=== PATIENT | female | born 1940 | race Caucasian/White ===

== ENCOUNTER 2017-04-26 08:58 | Outpatient (CLI) | payer MEDICARE ==
--- NOTE | 2017-04-26 15:14 | Diagnostic Imaging Report ---
[facility] [address] [facility] [address] [place] [address]. [id number] Report Submission Date: Apr 26, 2017 1:55:48 PM CDT Patient Study Name: KRISTINE MCBRIDE Date: Apr 26, 2017 9:01:03 AM CDT Modality Type: CR Gender: F Description: SPINE : 38 Institution: [facility] Physician ADELFO MORGAN - JOSE Lumbar spine 3 views Date of Exam: April 26, 2017. History: LOW BACK PAIN AFTER FALL ON 04/15/17 (Hx) / LOW BACK PAIN (DICOM Hx) / LOW BACK PAIN (Pt comments) Findings: Multilevel degenerative lumbar spondylosis is present. There are compression deformities of L1, L2 and L4. Correlation with MRI lumbar spine is recommended to determine acute versus chronic fractures. Slight grade I L4/5 anterior spondylolisthesis is present. Vacuum disc degenerative changes are noted in L5/ S1. There are multilevel degenerative section changes. Slight left lumbar scoliosis is noted. Gaseous distension of colon is present in the abdomen. Impression: L1, L2 and L4 compression fractures. Recommend correlation with MRI lumbar spine to determine acute versus chronic fractures. Multilevel degenerative lumbar spondylosis and slight left lumbar scoliosis. Electronically signed on Apr 26, 2017 1:55:48 PM CDT by: Jarad DAVIS
== END 2017-04-26 09:00 ==
LOC: RAD 08:58
PROVIDERS: ATTEND Family Medicine
DX: M54.5 Low back pain (principal)
CPT/HCPCS: 72100

== ENCOUNTER 2017-09-20 16:34 | Outpatient (CLI) | payer MEDICARE | END 2017-09-20 16:35 | LOC: LABRHC 16:34 | PROVIDERS: ATTEND Physician Assistant | DX: R30.0 Dysuria (principal) | CPT/HCPCS: 87086; 87186 ==

== ENCOUNTER 2017-11-11 16:22 | Outpatient (CLI) | payer MEDICARE | END 2017-11-11 16:23 | LOC: LABRHC 16:22 | PROVIDERS: ATTEND Physician Assistant | DX: R30.0 Dysuria (principal) | CPT/HCPCS: 87086; 87186 ==

== ENCOUNTER 2017-11-23 12:51 | Outpatient (CLI) | payer MEDICARE | END 2017-11-23 13:47 | LOC: LABRHC 12:51 | PROVIDERS: ATTEND Physician Assistant | DX: R30.0 Dysuria (principal) | CPT/HCPCS: 87086 ==

== ENCOUNTER 2018-01-12 17:21 | Outpatient (CLI) | payer MEDICARE | END 2018-01-12 17:22 | LOC: LABRHC 17:21 | PROVIDERS: ATTEND Family Medicine | DX: N31.1 Reflex neuropathic bladder, not elsewhere classified (principal) | CPT/HCPCS: 87086 ==

== ENCOUNTER 2018-01-18 10:46 | Outpatient (CLI) | payer MEDICARE ==
[2018-01-18 11:14] LABS: eGFR (African) > 60; eGFR (Non-African) > 60
--- NOTE | 2018-01-18 18:07 | Diagnostic Imaging Report ---
ADELFO MORGAN [facility] [address] [facility].[address] [address] Report Submission Date: January 18, 2018 1:07:25 PM CDT Patient Study Name: KRISTINE MCBRIDE Date: January 18, 2018 11:27:00 AM CDT Modality Type: CT\SR Gender: F Description: CT ABD PELVIS W/ CON : 38 Institution: [facility] Physician: ADELFO MORGAN Examination: CT Abdomen/pelvis HistorySUPRAPUBIC ABDOMINAL PAIN (Hx) Comparison exams: None available Technique: CT Abdomen/pelvis with IV protocol. Findings: Liver, spleen, adrenals, pancreas, kidneys and gallbladder are without gross irregularity. No abnormal enhancement. No gallstone. Left renal cysts. Renal vascular calcification. No suspicious cortical calcifications. Ureters are nondilated in their course through the abdomen and pelvis. Bladder margin within normal limits. Atherosclerotic disease involving the abdominal aorta. No aneurysm. Cardiac silhouette is not enlarged. No pericardial effusion. Bowel unopacified limiting evaluation. No abnormal dilation. Significant stool within the large bowel limiting sensitivity. No mesenteric inflammatory changes or free fluid. Appendix not visualized. No anterior abdominal wall hernia. No inguinal hernia. Osseous structures demonstrate osteopenia and numerous compression deformities. Lung bases with mild emphysematous changes. 3.5 mm right middle lung nodule. No effusion. Impression: No acute upper abdominal organ inflammatory process. No anterior abdominal wall or inguinal hernia. No gallstone. No suspicious renal calcifications. No abnormal ureteric dilation. Significant large bowel stool - constipation. Significant osteopenia and numerous vertebral body compression deformities - correlate with any prior imaging. 3.5 mm right middle lung nodule. Follow as clinically warranted. Electronically signed on January 18, 2018 1:07:25 PM CDT by: Topher DAVIS
== END 2018-01-18 10:47 ==
LOC: RAD 10:46
PROVIDERS: ATTEND Family Medicine
DX: R10.30 Lower abdominal pain, unspecified (principal)
CPT/HCPCS: 74177; 80053; Q9967

== ENCOUNTER 2018-04-13 17:00 | Outpatient (CLI) | payer MEDICARE | END 2018-04-13 17:03 | LOC: LABRHC 17:00 | PROVIDERS: ATTEND Family Medicine | DX: R30.0 Dysuria (principal) | CPT/HCPCS: 87086 ==

== ENCOUNTER 2018-09-26 15:21 | Outpatient (CLI) | payer MEDICARE | END 2018-09-26 15:23 | LOC: LABRHC 15:21 | PROVIDERS: ATTEND Family Medicine | DX: R10.32 Left lower quadrant pain (principal) | CPT/HCPCS: 87086 ==

== ENCOUNTER 2018-10-24 15:28 | Inpatient (IN) | payer MEDICARE ==
[2018-10-24 16:05] VITALS: BMI 25.3
[2018-10-24 16:29] LABS: BASOPHILS % 0.4 (0.0-1.5); MEAN CORPUSCULAR HEMOGLOBIN 32.7 pg (28.0-34.0); MONOCYTES % 6.2 % (0.0-11.0)
[2018-10-24 16:30] LABS: NEUTROPHILS # 3.8 # k/uL (1.4-7.7)
[2018-10-24 16:34] LABS: eGFR (Non-African) > 60
[2018-10-24] MEDS: 0.9 % SODIUM CHLORIDE 1,000 ML IV SCH (17:09)
[2018-10-24] MEDS: HYDROcodone /APAP 5/325 1 EACH TABLET PO PRN (19:41)
--- NOTE | 2018-10-24 20:41 | Diagnostic Imaging Report ---
ADELFO MORGAN [facility] [address] [facility].[address] [address] Report Submission Date: Oct 24, 2018 8:34:09 PM MEDICAL AFFAIRS MANAGER Patient Study Name: KRISTINE MCBRIDE Date: Oct 24, 2018 8:09:07 PM MEDICAL AFFAIRS MANAGER Modality Type: DX Gender: F Description: ABD SERIES PA CHEST : 38 Institution: [facility] Physician: ADELFO MORGAN Single view chest and single upright abdomen History: Abdominal pain and no recent bowel movement Findings: The lungs are hyperinflated without infiltrate or pleural effusion. Heart size is normal. Aortic atherosclerosis is present. An upright view of the upper abdomen reveals atherosclerosis and moderate colonic stool. There is no free air. Impression: 1. Moderate colonic stool in the upper abdomen. The patient declined a supine abdominal view so the lower abdomen and pelvis are excluded. 2. Hyperinflation. Electronically signed on Oct 24, 2018 8:34:09 PM MEDICAL AFFAIRS MANAGER by: Tera DAVIS
[2018-10-24] MEDS ORDERED: ALBUTEROL 90MCG/PUFF INHALER IH PRN (21:00)
[2018-10-24] MEDS: BUDESONIDE 0.5MG/2ML AMPUL.NEB NEB SCH (21:52)
[2018-10-24] MEDS: IPRATROPIUM/ALBUTEROL SULFATE 3 ML AMPUL.NEB NEB PRN (22:15)
[2018-10-25] MEDS: HYDROcodone /APAP 5/325 1 EACH TABLET PO PRN ×4 (00:54→20:29)
[2018-10-25 01:19] LABS: APPEARANCE,URINE CLEAR (CLEAR); COLOR,URINE YELLOW (YELLOW)
[2018-10-25 01:20] LABS: OCCULT BLOOD,URINE TRACE-INTACT (NEGATIVE); PH URINE 5.5 (5.0 - 8.0); UROBILINOGEN URINE 0.2 Eu (0.2-1.0)
[2018-10-25] MEDS: 0.9 % SODIUM CHLORIDE 1,000 ML IV SCH ×2 (02:38→13:56)
[2018-10-25] MEDS: FLUTICASONE/SALMETEROL 250-50 INHALER IH SCH ×2 (07:57→20:29)
[2018-10-25] MEDS: BUDESONIDE 0.5MG/2ML AMPUL.NEB NEB SCH ×2 (07:58→20:49)
--- NOTE | 2018-10-25 08:56 | History and Physical Report ---
History of Present Illnes - History of Present Illness Reason for Visit: Abd pain History of Present Illness: Patient is a 78-year-old white female who presented to the clinic today complaining of severe abdominal pain. Patient states that she does have some chronic abdominal pain but the pain is worse at this time. Patient denies any precipitating factor. Patient denies any modifying factor that she is aware of. Patient has had some problems with constipation in the past. 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 Patient denies having any fever or chills. Patient is not had any nausea vomiting or diarrhea. Patient denies any hematochezia melena her hematemesis. Patient is also been having some increasing shortness of breath dyspnea. Patient states that she is had a mild cough is been occasionally productive of some clear phlegm. Patient denies any chest pain. Patient is a smoker. In the office patient SaO2 on room air was 88%. - Past Medical History Pulmonary: COPD Musculoskeletal: Other (ostoeporosis) Renal/: Other (cervical dysplasis) - Past Surgical History Past Surgical History: Other (tendon repair of the thumb, 7 vaginal deliveries) - Past Family History Mother Family History: (84yo unknown cause) Father Family History: (92yo, advanced age) Brother 1 Family History: (obesity, EtOHism) - Past Social History Smoke: <1 pack per day (/2 - 3/ ppd) Alcohol: Rare Drugs: None Lives: With Family Domestic Violence: Negative - Health Maintenance Health Maintenance: denies: Influenza Vaccine, Pneumococcal Vaccine Influenza Vaccine: No, Patient Refused Pneumonia Vaccine: No (patient refused) Resuscitation Status: Resusciation Status Resuscitation Status Do Not Resuscitate - Unable to Obtain History Unable to Obtain: No Review of Systems - Review of Systems Constitutional: negative: Fever, Chills, Sweats Eyes: negative: vision change ENT: negative: Ear Pain, Ear Discharge, Mouth Pain, Throat Pain Respiratory: SOB with Excertion. negative: Cough, Dry, Shortness of Breath, Hemoptysis, Wheezing Cardiovascular: negative: Chest Pain, Palpitations, Orthopnea, Paroxysmal Noc. Dyspnea, Light Headedness Gastrointestinal: Nausea, Abdominal Pain, Constipation. negative: Vomiting, Diarrhea, Melena, Hematochezia Genitourinary: negative: Dysuria, Frequency, Incontinence, Hematuria Musculoskeletal: Back Pain, Leg Pain Skin: negative: Rash Neurological: negative: Weakness, Numbness, Incoordination, Confusion, Seizures - Medications/Allergies Allergies/Adverse Reactions: Allergies Allergy/AdvReac Type Severity Reaction Status Date / Time azithromycin Allergy Unknown Unverified 12/19/12 15:41 sulfamethoxazole Allergy Unknown Unverified 12/19/12 15:41 trimethoprim Allergy Unknown Unverified 12/19/12 15:41 Current Inpatient Medications: Current Inpatient Medications Albuterol Sulfate (Ventolin Hfa) puff IH Q 4-6 HRS PRN [facility] Albuterol/Ipratropium (Duoneb) 3 ml NEB Q4 PRN PRN Reason: dyspnea Last Admin: 10/24/18 22:15 Dose: 3 ml Benzonatate (Tessalon) 100 - 200 mg PO TID PRN PRN Reason: Cough Budesonide (Pulmicort) 0.5 mg NEB BID [facility] Last Admin: 10/25/18 07:58 Dose: 0.5 mg Sodium Chloride (Normal Saline) 1,000 mls @ 100 mls/hr IV Q10H [facility] Last Admin: 10/25/18 02:38 Dose: 100 mls/hr Fluticasone/Salmeterol (Advair 250-50 Diskus) 1 each IH BID [facility] Last Admin: 10/25/18 07:57 Dose: Not Given Exam - Exam Vital Signs: Vital Signs (72 hours) 10/24/18 10/24/18 10/24/18 15:58 16:00 22:39 Temperature 98.8 F 98.7 F 98.0 F Pulse Rate [ 102 H 102 H 87 Right] Respiratory 20 20 18 Rate Blood Pressure 153/115 153/115 193/99 [Left Arm] O2 Sat by Pulse 96 96 94 Oximetry 10/24/18 10/25/18 10/25/18 23:33 02:23 06:00 Temperature 97.2 F L 97.5 F L Pulse Rate [ 93 H 78 Right] Respiratory 16 18 Rate Blood Pressure 149/63 149/60 [Left Arm] O2 Sat by Pulse 96 97 Oximetry General: Alert, Oriented to Person, Oriented to Place, Oriented to Time, Cooperative HEENT: Atraumatic, PERRLA, EOMI, Mouth Mucous membr. moist/Alexis, Nose Mucous membr. moist/Alexis Neck: Normal Range of Motion Lungs: Normal air movement, Speaks full Sentences, Rhonchi (few scattered) Cardiovascular: Regular rate, Normal S1, Normal S2 Murmur: No: Systolic Murmur Abdomen: Soft, No hepatospenomegaly, No masses, Other (mild LLQ gaurding, generalized tenderness), Decreased Bowel Sounds Integumentary: Normal, [place], Warm, Dry Extremities: No clubbing, No cyanosis, No edema, Normal pulses Neurological: Normal gait, Normal speech, Strength Equal Bilat, Sensation intact, Cranial nerves 3-12 NL, Reflexes 2+ Psych/Mental Status: Mental status NL, Mood NL, Intact Judgment - Laboratory Results Laboratory Results: Laboratory Results 10/24/18 10/24/18 10/25/18 16:00 16:00 01:00 WBC 5.70 RBC 4.48 Hgb 14.6 Hct 43.3 MCV 97.0 MCH 32.7 MCHC 33.8 RDW 13.1 Plt Count 270 Neut % (Auto) 66.7 Lymph % (Auto) 24.7 [place] % (Auto) 6.2 Eos % (Auto) 2.0 Baso % (Auto) 0.4 Neut # (Auto) 3.8 Lymph # (Auto) 1.4 [place] # (Auto) 0.4 Eos # (Auto) 0.1 Baso # (Auto) 0.0 Sodium 139 Potassium 3.6 Chloride 101 Carbon Dioxide 26 BUN 8 Creatinine 0.58 Estimated Creat Clear 94 Est GFR ( Amer) > 60 Est GFR (Non-Af Amer) > 60 Glucose 92 Calcium 9.6 Total Bilirubin 0.7 AST 36 ALT 29 Alkaline Phosphatase 91 Total Protein 6.8 Albumin 4.4 Lipase 32 Urine Color Yellow Urine Appearance Clear Urine pH 5.5 Ur Specific [place] 1.015 Urine Protein Negative Urine Ketones 1+ H Urine Occult Blood Trace-intact H Urine Nitrite Negative Urine Bilirubin Negative Urine Urobilinogen 0.2 Ur Leukocyte Esterase Negative Urine RBC 5-10 H Urine WBC 0-2 Ur Squamous Epith Cells Few Urine Bacteria Negative Urine Glucose Negative Assessment/Plan - Assessment/Plan (1) Abdominal pain Status: Acute Qualifiers: Abdominal location: generalized Qualified Code(s): R10.84 - Generalized abdominal pain Assessment: Patient will have a CBC, CMP, lipase, abdominal x-ray done. Patient will be started on IV fluids. (2) COPD (chronic obstructive pulmonary disease) Status: Acute Qualifiers: COPD type: COPD with acute exacerbation Qualified Code(s): J44.1 - Chronic obstructive pulmonary disease with (acute) exacerbation Assessment: Patient will be monitored for her oxygen requirements. Will consider started on IV steroids and high flow nebulization treatments. Patient will be continued on her home medications. (3) Tobacco dependence Status: Chronic Assessment: Patient will be encouraged to stop smoking. VTE Assessment - RISK FACTOR SCORE VTE RISK FACTOR SCORES: AGE OVER 60 YEARS, ANTICIPATED BED CONFINEMENT OR IMMOBILIZATION > 24 HOURS, SMOKER - RISK VTE MODERATE RISK: SCORE OF 2 (RISK PROXIMAL DVT 2-4%) PROPHYAXIS NEEDED
[2018-10-25] MEDS ORDERED: MAGNESIUM CITRATE 296 ML BOTTLE PO ONE (11:00)
[2018-10-25] MEDS: IPRATROPIUM/ALBUTEROL SULFATE 3 ML AMPUL.NEB NEB PRN (16:46)
[2018-10-25] MEDS ORDERED: methylPREDNISolone SOD SUCC 125 MG/2 ML VIAL IVP ONE (18:44)
--- NOTE | 2018-10-25 18:48 | Inpatient Progress Note ---
Subjective - Required Recertification Statement I anticipate X number of days because-include discharge plan: 1 day - Review of Systems Events since last encounter: Patient stated her abdominal pain does seem to be improved some. Appetite continues to be diminished. Patient is not had any nausea vomiting. Patient continues to be short of breath and is requiring supplemental oxygen. General: Denies: Chills Pulmonary: Dyspnea Cardiovascular: Denies: Chest Pain, Palpitations Gastrointestinal: Nausea, Abdominal Pain. Denies: Vomiting, Diarrhea, Constipation Genitourinary: Denies: Dysuria, Frequency Objective - Exam Vitals and I&O: Vital Signs Temp 97.5 F L 10/25/18 17:42 Pulse 81 10/25/18 17:42 Resp 20 10/25/18 17:42 BP 124/36 10/25/18 17:42 Pulse Ox 93 10/25/18 17:42 Intake & Output 10/24/18 10/25/18 10/25/18 23:59 11:59 23:59 Intake Total 200 360 320 Output Total 400 600 Balance 200 -40 -280 Weight 64.864 kg Intake: Oral 200 360 320 Output: Urine 400 600 Other: Voiding Method Bedside Commode Bedside Commode Bedside Commode # Voids 1 2 # Bowel Movements 2 General: Alert, Oriented to Person, Oriented to Place, Oriented to Time, Cooperative Neck: Supple, No JVD, No thyromegaly Lungs: Wheezes (mild), Rhonchi (few scattered). No: Rales Cardiovascular: Regular rate, Normal S1, Normal S2, No murmurs Abdomen: Normal bowel sounds, Soft, No tenderness Extremities: No clubbing, No cyanosis Neurological: Normal gait, Normal speech, Strength Equal Bilat - Results Results: Laboratory Results WBC 5.70 K/ul (4.00-12.00) 10/24/18 16:00 RBC 4.48 M/ul (3.90-5.20) 10/24/18 16:00 Hgb 14.6 g/dL (12.0-16.0) 10/24/18 16:00 Hct 43.3 % (34.5-46.5) 10/24/18 16:00 MCV 97.0 fl (80.0-100.0) 10/24/18 16:00 MCH 32.7 pg (28.0-34.0) 10/24/18 16:00 MCHC 33.8 g/dL (30.0-36.0) 10/24/18 16:00 RDW 13.1 % (11.3-14.3) 10/24/18 16:00 Plt Count 270 K/mm3 (130-400) 10/24/18 16:00 Neut % (Auto) 66.7 % (39.0-79.0) 10/24/18 16:00 Lymph % (Auto) 24.7 % (16.0-50.0) 10/24/18 16:00 [place] % (Auto) 6.2 % (0.0-11.0) 10/24/18 16:00 Eos % (Auto) 2.0 % (0.0-6.8) 10/24/18 16:00 Baso % (Auto) 0.4 (0.0-1.5) 10/24/18 16:00 Neut # (Auto) 3.8 # k/uL (1.4-7.7) 10/24/18 16:00 Lymph # (Auto) 1.4 # k/uL (0.6-4.0) 10/24/18 16:00 [place] # (Auto) 0.4 # k/uL (0.0-0.9) 10/24/18 16:00 Eos # (Auto) 0.1 # k/uL (0.0-0.6) 10/24/18 16:00 Baso # (Auto) 0.0 # k/uL (0.0-0.5) 10/24/18 16:00 Sodium 139 mmol/L (136-145) 10/24/18 16:00 Potassium 3.6 mmol/L (3.5-5.1) 10/24/18 16:00 Chloride 101 mmol/L (98-107) 10/24/18 16:00 Carbon Dioxide 26 mmol/L (22-30) 10/24/18 16:00 BUN 8 mg/dL (7-17) 10/24/18 16:00 Creatinine 0.58 mg/dL (0.52-1.04) 10/24/18 16:00 Estimated Creat Clear 94 10/24/18 16:00 Est GFR ( Amer) > 60 (60-) 10/24/18 16:00 Est GFR (Non-Af Amer) > 60 (60-) 10/24/18 16:00 Glucose 92 mg/dL (74-106) 10/24/18 16:00 Calcium 9.6 mg/dL (8.4-10.2) 10/24/18 16:00 Total Bilirubin 0.7 mg/dL (0.2-1.3) 10/24/18 16:00 AST 36 U/L (15-46) 10/24/18 16:00 ALT 29 U/L (13-69) 10/24/18 16:00 Alkaline Phosphatase 91 U/L (38-126) 10/24/18 16:00 Total Protein 6.8 g/dL (6.3-8.2) 10/24/18 16:00 Albumin 4.4 g/dL (3.5-5.0) 10/24/18 16:00 Lipase 32 U/L (23-300) 10/24/18 16:00 Urine Color Yellow (YELLOW) 10/25/18 01:00 Urine Appearance Clear (CLEAR) 10/25/18 01:00 Urine pH 5.5 (5.0 - 8.0) 10/25/18 01:00 Ur Specific [place] 1.015 (1.010-1.030) 10/25/18 01:00 Urine Protein Negative mg/dL (NEGATIVE) 10/25/18 01:00 Urine Ketones 1+ mg/dL (NEGATIVE) H 10/25/18 01:00 Urine Occult Blood Trace-intact (NEGATIVE) H 10/25/18 01:00 Urine Nitrite Negative (NEGATIVE) 10/25/18 01:00 Urine Bilirubin Negative (NEGATIVE) 10/25/18 01:00 Urine Urobilinogen 0.2 Eu (0.2-1.0) 10/25/18 01:00 Ur Leukocyte Esterase Negative (NEGATIVE) 10/25/18 01:00 Urine RBC 5-10 (0-2 HPF) H 10/25/18 01:00 Urine WBC 0-2 (0-5 HPF) 10/25/18 01:00 Ur Squamous Epith Cells Few (NEG-FEW) 10/25/18 01:00 Urine Bacteria Negative (NEGATIVE) 10/25/18 01:00 Urine Glucose Negative mg/dL (NEGATIVE) 02/06/19 01:00 Assessment/Plan - Assessment/Plan (1) Abdominal pain Status: Acute Qualifiers: Abdominal location: generalized Qualified Code(s): R10.84 - Generalized abdominal pain Assessment: Etiology is unclear at this time. Patient may be having some back problems that may be contributing some to the abdominal pain. (2) COPD (chronic obstructive pulmonary disease) Status: Acute Qualifiers: COPD type: COPD with acute exacerbation Qualified Code(s): J44.1 - Chronic obstructive pulmonary disease with (acute) exacerbation Assessment: Patient continues to get short of breath with minimal exists exertion. Patient lungs do sound a little bit worse today. (3) Tobacco dependence Status: Chronic
[2018-10-25] MEDS ORDERED: ALBUTEROL SULFATE 2.5 MG/3 ML AMPUL.NEB NEB ONE (19:57)
[2018-10-25] MEDS: IPRATROPIUM/ALBUTEROL SULFATE 3 ML AMPUL.NEB NEB SCH (20:55)
[2018-10-26] MEDS: BENZONATATE 100 MG CAPSULE PO PRN (05:42)
[2018-10-26] MEDS: FLUTICASONE/SALMETEROL 250-50 INHALER IH SCH ×2 (08:48→20:34)
[2018-10-26] MEDS: HYDROcodone /APAP 5/325 1 EACH TABLET PO PRN ×2 (08:49→12:43)
[2018-10-26] MEDS: methylPREDNISolone SOD SUCC 40 MG/ML VIAL IVP SCH ×2 (08:52→20:34)
[2018-10-26] MEDS: BUDESONIDE 0.5MG/2ML AMPUL.NEB NEB SCH ×2 (09:01→20:33)
[2018-10-26] MEDS: IPRATROPIUM/ALBUTEROL SULFATE 3 ML AMPUL.NEB NEB SCH ×4 (09:02→21:16)
[2018-10-26] MEDS: ENOXAPARIN SODIUM 30 MG/0.3 ML DISP.SYRIN SQ SCH (12:27)
--- NOTE | 2018-10-26 14:10 | Diagnostic Imaging Report ---
ADELFO MORGAN [facility] [address] [facility].[address] [address] Report Submission Date: Oct 26, 2018 11:25:09 AM MORTGAGE PROCESSING CLERK Patient Study Name: KRISTINE MCBRIDE Date: Oct 26, 2018 10:08:27 AM MORTGAGE PROCESSING CLERK Modality Type: DX Gender: F Description: HAND 3 VIEWS OR MORE : 38 Institution: [facility] Physician: ADELFO MORGAN Left hand History: Pain Three views of the left hand were obtained which demonstrate osteopenia. No acute osseous abnormalities are noted. Moderate osteoarthritic findings are present of the 1st metacarpal carpal joint space and of the triscaphe joint. There is mild narrowing of radiocarpal joint. No significant degenerative findings of the digits are noted. Impression: Demineralization. 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 Electronically signed on Oct 26, 2018 11:25:09 AM MORTGAGE PROCESSING CLERK by: Ninfa DAVIS
[2018-10-27] MEDS: FLUTICASONE/SALMETEROL 250-50 INHALER IH SCH ×2 (08:57→20:26)
[2018-10-27] MEDS: ENOXAPARIN SODIUM 30 MG/0.3 ML DISP.SYRIN SQ SCH (08:58)
[2018-10-27] MEDS: BUDESONIDE 0.5MG/2ML AMPUL.NEB NEB SCH ×2 (09:03→21:38)
[2018-10-27] MEDS: IPRATROPIUM/ALBUTEROL SULFATE 3 ML AMPUL.NEB NEB SCH ×4 (09:04→21:49)
[2018-10-27] MEDS: methylPREDNISolone SOD SUCC 40 MG/ML VIAL IVP SCH ×2 (09:05→21:51)
[2018-10-27 13:25] LABS: OCCULT BLOOD,URINE TRACE-LYSED (NEGATIVE); UROBILINOGEN URINE 0.2 Eu (0.2-1.0)
[2018-10-27] MEDS: BENZONATATE 100 MG CAPSULE PO PRN (13:57)
--- NOTE | 2018-10-27 15:56 | Diagnostic Imaging Report ---
ADELFO MORGAN [facility] [address] [facility].[address] [address] Report Submission Date: Oct 27, 2018 3:53:06 PM SEX WORKER OR ESCORT Patient Study Name: KRISTINE MCBRIDE Date: Oct 27, 2018 8:02:04 AM SEX WORKER OR ESCORT Modality Type: US Gender: F Description: US ABDOMEN COMPLETE : 38 Institution: [facility] Physician: ADELFO MORGAN Examination: Ultrasound abdomen History: RUQ PAIN AND PERIUMBILICAL PAIN Comparison exam: None available for direct review. Findings: Sonographic evaluation of the abdomen demonstrates a gallbladder without stones or sludge. Gallbladder wall is not thickened measuring 2.5 mm. Common bile duct measures 4.0 mm. No intrahepatic biliary dilation. Liver demonstrates normal homogeneous echogenicity. No mass. Normal flow on color analysis. Normal Doppler waveforms. Right kidney measures 10.4 cm in length. Left kidney measures 10.2 cm in length. No hydronephrosis. Low density area upper pole left kidney measuring 2.5 cm Pancreatic region, spleen, and abdominal aorta are without gross irregularity. Impression: No gallstones or obstruction. Low density area adjacent to the upper pole of the left kidney. Renal cyst was described on a report from CT dated 18 Jan 2018. Correlation with that examination recommended when becomes available. Electronically signed on Oct 27, 2018 3:53:06 PM SEX WORKER OR ESCORT by: Topher DAVIS
[2018-10-28] MEDS: FLUTICASONE/SALMETEROL 250-50 INHALER IH SCH (09:14)
[2018-10-28] MEDS: IPRATROPIUM/ALBUTEROL SULFATE 3 ML AMPUL.NEB NEB SCH ×2 (09:15→11:33)
[2018-10-28] MEDS: ENOXAPARIN SODIUM 30 MG/0.3 ML DISP.SYRIN SQ SCH (09:15)
[2018-10-28] MEDS: methylPREDNISolone SOD SUCC 40 MG/ML VIAL IVP SCH (09:15)
[2018-10-28] MEDS: BUDESONIDE 0.5MG/2ML AMPUL.NEB NEB SCH (09:26)
[2018-10-28 09:36] VITALS: BP 154/77
--- NOTE | 2018-10-28 10:04 | Inpatient Progress Note ---
Subjective - Required Recertification Statement I anticipate X number of days because-include discharge plan: 1 day - Review of Systems Events since last encounter: Patient still complains of some abd pain. Has been having BM, had 3 today. No blood noted. No precipitating or modifying factors noted. US done today show cyst on the kidney that was seen with previous CT scan. No other abnormalities noted. Patient's breathing seem to be improving at this time. She is still having some SOB with exertion. No cough at this time. Still needs to be on oxygen to maintain SAO2 > 90%. Pulmonary: Dyspnea. Denies: Cough, Pleuritic Chest Pain Cardiovascular: Denies: Chest Pain, Palpitations Gastrointestinal: Abdominal Pain. Denies: Nausea, Vomiting, Diarrhea, Constipation, Melena, Hematochezia Genitourinary: Denies: Dysuria, Frequency Musculoskeletal: Back Pain Objective - Exam Vitals and I&O: Vital Signs Temp 97.9 F 10/28/18 09:35 Pulse 87 10/28/18 09:35 Resp 20 10/28/18 09:35 BP 154/77 10/28/18 09:35 Pulse Ox 95 10/28/18 09:35 Intake & Output 10/27/18 10/27/18 10/28/18 11:59 23:59 11:59 Intake Total 420 255 340 Balance 420 255 340 Weight 64.864 kg Intake: IV 15 0 Right Forearm 15 0 Oral 420 240 340 Other: Voiding Method Bedside Commode Bedside Commode Bedside Commode # Voids 1 2 # Bowel Movements 1 2 General: Alert, Oriented to Person, Oriented to Place, Oriented to Time, Cooperative Neck: Supple Lungs: Wheezes (few bilateral, improving), Rhonchi (occasional) Cardiovascular: Regular rate, Normal S1, Normal S2, No murmurs Abdomen: Normal bowel sounds, Soft, No hepatospenomegaly, Other (Mild tenderness to the mid abd area.). No: Distended Extremities: No clubbing, No cyanosis, No edema Skin: Normal, [place], Warm, Pale Neurological: Normal gait, Normal speech, Strength Equal Bilat Psych/Mental Status: Mental status NL, Mood NL, Intact Judgment - Results Results: Laboratory Results WBC 5.70 K/ul (4.00-12.00) 10/24/18 16:00 RBC 4.48 M/ul (3.90-5.20) 10/24/18 16:00 Hgb 14.6 g/dL (12.0-16.0) 10/24/18 16:00 Hct 43.3 % (34.5-46.5) 10/24/18 16:00 MCV 97.0 fl (80.0-100.0) 10/24/18 16:00 MCH 32.7 pg (28.0-34.0) 10/24/18 16:00 MCHC 33.8 g/dL (30.0-36.0) 10/24/18 16:00 RDW 13.1 % (11.3-14.3) 10/24/18 16:00 Plt Count 270 K/mm3 (130-400) 10/24/18 16:00 Neut % (Auto) 66.7 % (39.0-79.0) 10/24/18 16:00 Lymph % (Auto) 24.7 % (16.0-50.0) 10/24/18 16:00 [place] % (Auto) 6.2 % (0.0-11.0) 10/24/18 16:00 Eos % (Auto) 2.0 % (0.0-6.8) 10/24/18 16:00 Baso % (Auto) 0.4 (0.0-1.5) 10/24/18 16:00 Neut # (Auto) 3.8 # k/uL (1.4-7.7) 10/24/18 16:00 Lymph # (Auto) 1.4 # k/uL (0.6-4.0) 10/24/18 16:00 [place] # (Auto) 0.4 # k/uL (0.0-0.9) 10/24/18 16:00 Eos # (Auto) 0.1 # k/uL (0.0-0.6) 10/24/18 16:00 Baso # (Auto) 0.0 # k/uL (0.0-0.5) 10/24/18 16:00 Sodium 139 mmol/L (136-145) 10/24/18 16:00 Potassium 3.6 mmol/L (3.5-5.1) 10/24/18 16:00 Chloride 101 mmol/L (98-107) 10/24/18 16:00 Carbon Dioxide 26 mmol/L (22-30) 10/24/18 16:00 BUN 8 mg/dL (7-17) 10/24/18 16:00 Creatinine 0.58 mg/dL (0.52-1.04) 10/24/18 16:00 Estimated Creat Clear 94 10/24/18 16:00 Est GFR ( Amer) > 60 (60-) 10/24/18 16:00 Est GFR (Non-Af Amer) > 60 (60-) 10/24/18 16:00 Glucose 92 mg/dL (74-106) 10/24/18 16:00 Calcium 9.6 mg/dL (8.4-10.2) 10/24/18 16:00 Total Bilirubin 0.7 mg/dL (0.2-1.3) 10/24/18 16:00 AST 36 U/L (15-46) 10/24/18 16:00 ALT 29 U/L (13-69) 10/24/18 16:00 Alkaline Phosphatase 91 U/L (38-126) 10/24/18 16:00 Total Protein 6.8 g/dL (6.3-8.2) 10/24/18 16:00 Albumin 4.4 g/dL (3.5-5.0) 10/24/18 16:00 Lipase 32 U/L (23-300) 10/24/18 16:00 Urine Color yellow (YELLOW) 10/27/18 13:04 Urine Appearance clear (CLEAR) 10/27/18 13:04 Urine pH 7.0 (5.0 - 8.0) 10/27/18 13:04 Ur Specific [place] 1.015 (1.010-1.030) 10/27/18 13:04 Urine Protein Negative mg/dL (NEGATIVE) 10/27/18 13:04 Urine Ketones Trace mg/dL (NEGATIVE) H 10/27/18 13:04 Urine Occult Blood Trace-lysed (NEGATIVE) H 10/27/18 13:04 Urine Nitrite Negative (NEGATIVE) 10/27/18 13:04 Urine Bilirubin Negative (NEGATIVE) 10/27/18 13:04 Urine Urobilinogen 0.2 Eu (0.2-1.0) 10/27/18 13:04 Ur Leukocyte Esterase Negative (NEGATIVE) 10/27/18 13:04 Urine RBC (0-2 HPF) 10/27/18 13:04 Urine WBC 0-2 (0-5 HPF) 10/25/18 01:00 Ur Squamous Epith Cells Few (NEG-FEW) 10/25/18 01:00 Urine Bacteria Negative (NEGATIVE) 10/25/18 01:00 Urine Glucose Negative mg/dL (NEGATIVE) 10/27/18 13:04 Assessment/Plan - Assessment/Plan (1) Abdominal pain Status: Acute Current Visit: Yes Qualifiers: Abdominal location: generalized Qualified Code(s): R10.84 - Generalized abdominal pain Assessment: No specific etiology could be found at this time. May be related to some back issues. I will review MRI scan done. Patient advised that she needs to have an endoscopy and colonoscopy done. (2) COPD (chronic obstructive pulmonary disease) Status: Acute Current Visit: Yes Qualifiers: COPD type: COPD with acute exacerbation Qualified Code(s): J44.1 - Chronic obstructive pulmonary disease with (acute) exacerbation Assessment: seems some better. Anticipate that we will need to send patient home on oxygen. Patient has been given smoking cessation literature and phone numbers. (3) Tobacco dependence Status: Chronic Current Visit: Yes Assessment: has not needed any patches.
--- NOTE | 2018-10-28 10:13 | Inpatient Progress Note ---
Subjective - Required Recertification Statement I anticipate X number of days because-include discharge plan: 1 day - Review of Systems Events since last encounter: Patient continues to get short of breath with minimal exists exertion. Patient has not been on oxygen therapy prior to admission to the hospital. Patient has been a heavy smoker. I suspect that she is having some COPD with and exacerbation. Patient continues to have some abdominal pain. Etiology is unclear. Patient denies that there is any change been eating drinking or movement. Bowel movements have been normal. Will consider getting an ultrasound of her abdomen. General: Denies: Chills Pulmonary: Dyspnea, Cough Cardiovascular: Denies: Chest Pain, Palpitations Gastrointestinal: Abdominal Pain. Denies: Nausea, Vomiting, Diarrhea, Constipation, Melena, Hematochezia Objective - Exam Vitals and I&O: Vital Signs Temp 97.9 F 10/28/18 09:35 Pulse 87 10/28/18 09:35 Resp 20 10/28/18 09:35 BP 154/77 10/28/18 09:35 Pulse Ox 95 10/28/18 09:35 Intake & Output 10/27/18 10/27/18 10/28/18 11:59 23:59 11:59 Intake Total 420 255 340 Balance 420 255 340 Weight 64.864 kg Intake: IV 15 0 Right Forearm 15 0 Oral 420 240 340 Other: Voiding Method Bedside Commode Bedside Commode Bedside Commode # Voids 1 2 # Bowel Movements 1 2 General: Alert, Oriented to Person, Oriented to Place, Oriented to Time, Cooperative HEENT: Atraumatic, PERRLA, EOMI, Mouth Mucous membr. moist/[place], Nose Mucous membr. moist/[place] Neck: Supple, No JVD, No thyromegaly Lungs: Normal air movement, Speaks full Sentences, Rales, Rhonchi Cardiovascular: Regular rate, Normal S1, Normal S2, No murmurs Abdomen: Normal bowel sounds, Soft, No hepatospenomegaly, No masses, Other (diffuse tenderness) - Results Results: Laboratory Results WBC 5.70 K/ul (4.00-12.00) 10/24/18 16:00 RBC 4.48 M/ul (3.90-5.20) 10/24/18 16:00 Hgb 14.6 g/dL (12.0-16.0) 10/24/18 16:00 Hct 43.3 % (34.5-46.5) 10/24/18 16:00 MCV 97.0 fl (80.0-100.0) 10/24/18 16:00 MCH 32.7 pg (28.0-34.0) 10/24/18 16:00 MCHC 33.8 g/dL (30.0-36.0) 10/24/18 16:00 RDW 13.1 % (11.3-14.3) 10/24/18 16:00 Plt Count 270 K/mm3 (130-400) 10/24/18 16:00 Neut % (Auto) 66.7 % (39.0-79.0) 10/24/18 16:00 Lymph % (Auto) 24.7 % (16.0-50.0) 10/24/18 16:00 [place] % (Auto) 6.2 % (0.0-11.0) 10/24/18 16:00 Eos % (Auto) 2.0 % (0.0-6.8) 10/24/18 16:00 Baso % (Auto) 0.4 (0.0-1.5) 10/24/18 16:00 Neut # (Auto) 3.8 # k/uL (1.4-7.7) 10/24/18 16:00 Lymph # (Auto) 1.4 # k/uL (0.6-4.0) 10/24/18 16:00 [place] # (Auto) 0.4 # k/uL (0.0-0.9) 10/24/18 16:00 Eos # (Auto) 0.1 # k/uL (0.0-0.6) 10/24/18 16:00 Baso # (Auto) 0.0 # k/uL (0.0-0.5) 10/24/18 16:00 Sodium 139 mmol/L (136-145) 10/24/18 16:00 Potassium 3.6 mmol/L (3.5-5.1) 10/24/18 16:00 Chloride 101 mmol/L (98-107) 10/24/18 16:00 Carbon Dioxide 26 mmol/L (22-30) 10/24/18 16:00 BUN 8 mg/dL (7-17) 10/24/18 16:00 Creatinine 0.58 mg/dL (0.52-1.04) 10/24/18 16:00 Estimated Creat Clear 94 10/24/18 16:00 Est GFR ( Amer) > 60 (60-) 10/24/18 16:00 Est GFR (Non-Af Amer) > 60 (60-) 10/24/18 16:00 Glucose 92 mg/dL (74-106) 10/24/18 16:00 Calcium 9.6 mg/dL (8.4-10.2) 10/24/18 16:00 Total Bilirubin 0.7 mg/dL (0.2-1.3) 10/24/18 16:00 AST 36 U/L (15-46) 10/24/18 16:00 ALT 29 U/L (13-69) 10/24/18 16:00 Alkaline Phosphatase 91 U/L (38-126) 10/24/18 16:00 Total Protein 6.8 g/dL (6.3-8.2) 10/24/18 16:00 Albumin 4.4 g/dL (3.5-5.0) 10/24/18 16:00 Lipase 32 U/L (23-300) 10/24/18 16:00 Urine Color yellow (YELLOW) 10/27/18 13:04 Urine Appearance clear (CLEAR) 10/27/18 13:04 Urine pH 7.0 (5.0 - 8.0) 10/27/18 13:04 Ur Specific [place] 1.015 (1.010-1.030) 10/27/18 13:04 Urine Protein Negative mg/dL (NEGATIVE) 10/27/18 13:04 Urine Ketones Trace mg/dL (NEGATIVE) H 10/27/18 13:04 Urine Occult Blood Trace-lysed (NEGATIVE) H 10/27/18 13:04 Urine Nitrite Negative (NEGATIVE) 10/27/18 13:04 Urine Bilirubin Negative (NEGATIVE) 10/27/18 13:04 Urine Urobilinogen 0.2 Eu (0.2-1.0) 10/27/18 13:04 Ur Leukocyte Esterase Negative (NEGATIVE) 10/27/18 13:04 Urine RBC (0-2 HPF) 10/27/18 13:04 Urine WBC 0-2 (0-5 HPF) 10/25/18 01:00 Ur Squamous Epith Cells Few (NEG-FEW) 10/25/18 01:00 Urine Bacteria Negative (NEGATIVE) 10/25/18 01:00 Urine Glucose Negative mg/dL (NEGATIVE) 10/27/18 13:04 Assessment/Plan - Assessment/Plan (1) Abdominal pain Status: Acute Qualifiers: Abdominal location: generalized Qualified Code(s): R10.84 - Generalized abdominal pain Assessment: US of abd (2) COPD (chronic obstructive pulmonary disease) Status: Acute Qualifiers: COPD type: COPD with acute exacerbation Qualified Code(s): J44.1 - Chronic obstructive pulmonary disease with (acute) exacerbation Assessment: Seem to be slowly getting better. (3) Tobacco dependence Status: Chronic
--- NOTE | 2018-10-28 10:16 | Discharge Summary ---
Discharge Summary - Discharge Sumary History of Present Illness: Patient is a 78-year-old white female who presented to the clinic today complaining of severe abdominal pain. Patient states that she does have some chronic abdominal pain but the pain is worse at this time. Patient denies any precipitating factor. Patient denies any modifying factor that she is aware of. Patient has had some problems with constipation in the past. 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 Patient denies having any fever or chills. Patient is not had any nausea vomiting or diarrhea. Patient denies any hematochezia melena her hematemesis. Patient is also been having some increasing shortness of breath dyspnea. Patient states that she is had a mild cough is been occasionally productive of some clear phlegm. Patient denies any chest pain. Patient is a smoker. In the office patient SaO2 on room air was 88%. Condition at Discharge: Stable Home Medications: Ambulatory Orders Medication Instructions Recorded Prednisone 40 mg PO D #12 tablet 10/28/18 Consultations this Visit: None Procedures this Visit: Other (US abd) Allergies/Adverse Reactions: Allergies Allergy/AdvReac Type Severity Reaction Status Date / Time azithromycin Allergy Unknown Unverified 12/19/12 15:41 sulfamethoxazole Allergy Unknown Unverified 12/19/12 15:41 trimethoprim Allergy Unknown Unverified 12/19/12 15:41 Discharge Summary: Patient was admitted to the hospital and blood work with done. Amylase liver enzymes were within normal limits. Patient did have an ultrasound done which was felt to be within normal limits. X-rays of the abdomen were felt to be within normal limits. Patient has had a previous CT scan of the abdomen which was normal. Patient was complaining of some back pain. Her some question about whether patient may be having some back issues that may be contributing to her abdominal pain. Patient oral intake did improve during her hospitalization. It was felt that the patient could maintain adequate hydration at home. Patient did have some shortness of breath dyspnea with minimal exertion. Patient was having some mild wheezing and cough. It was felt that the patient is developing COPD and was started on DuoNeb treatments along with steroid with improvement of her breathing status. Patient still required oxygen therapy at the time of dismissal and was discharged home on Home O2. Patient hypertension remain stable. Hospital Course: SAO2 - Room air resting 87%. Room air ambulating 84%. 2 liters/NC resting 94%. 2 liters/NC ambulation 92% - Final Diagnosis (1) Abdominal pain Problems: Will continue work-up on outpatient.Patient has had an endoscopy and colonoscopy done has [place] director [place]. I suspect that she may be having some back issues that may be related to her abdominal pain. (2) COPD (chronic obstructive pulmonary disease) Problems: Improved, will schedule a PFT (3) Tobacco dependence Problems: Encourage cessation, patient given information (4) Hypertension Problems: stable
== END 2018-10-28 12:35 | disposition home or self-care (01) | DRG 192 ==
LOC: SOUTH 15:28
PROVIDERS: ADMIT Family Medicine; ATTEND Family Medicine
DX: J44.1 Chronic obstructive pulmonary disease with (acute) exacerbation (principal); R10.84 Generalized abdominal pain; R63.8 Other symptoms and signs concerning food and fluid intake; N28.1 Cyst of kidney, acquired; M19.042 Primary osteoarthritis, left hand; I10 Essential (primary) hypertension; F17.210 Nicotine dependence, cigarettes, uncomplicated
CPT/HCPCS: 73130; 74022; 76700; 80053; 81002; 83690; 85025; A9270; J1030; J1650; J2930; J7030; J7626; 99222; 99231; 99232; 99238; J2920; S1016

== ENCOUNTER 2019-03-06 06:00 | Outpatient (CLI) | payer MEDICARE ==
[2019-03-19 13:27] LABS: APPEARANCE,URINE CLEAR (CLEAR); COLOR,URINE YELLOW (YELLOW); OCCULT BLOOD,URINE TRACE-INTACT (NEGATIVE); eGFR (Non-African) > 60
[2019-03-19 13:28] LABS: UROBILINOGEN URINE 0.2 Eu (0.2-1.0)
== END 2019-03-06 06:03 ==
LOC: LAB 06:00
PROVIDERS: ATTEND Family Medicine
DX: J44.9 Chronic obstructive pulmonary disease, unspecified (principal); G89.29 Other chronic pain
CPT/HCPCS: 80053; 81002; 87086